=== PATIENT | male | born 1945 | race Caucasian/White ===

== ENCOUNTER → 2017-04-10 | Outpatient (CLI) | payer OTHER, MEDICARE ==
[~2017-04-10] MED LIST: ASCOGRA; ASPI-113 PO; CLB/200 PO; ERGO1CAP35 PO; LISI-788 PO; OMEG10007 PO; OXYC-292 PO; SIMV20TA2 PO
--- NOTE | 2017-04-10 09:53 | DIAGNOSTIC IMAGING REPORT ---
LEFT KNEE 1 OR 2 VIEWS ROUTINE HISTORY:71 yearsMale acute left knee pain without reported trauma. COMPARISON: None available. TECHNIQUE: Frontal and lateral views of the left knee. FINDINGS: The patient is status post left knee arthroplasty with patellar resurfacing. There is a moderate-sized knee joint effusion. Vascular calcifications are noted. No acute fracture or dislocation. No intra-articular loose body. No evidence of hardware fracture or loosening. IMPRESSION: 1. Moderate sized joint effusion without acute fracture or dislocation. 2. Left knee arthroplasty with patellar resurfacing. No evidence of hardware fracture or complication. The above report was generated using voice recognition software. It may contain grammatical, syntax or spelling errors. Electronically signed by: Tonio Rai 04/10/2017 9:52 AM Dictated Date/Time: 04/10/2017 9:49 AM
== END | disposition home or self-care (01) ==
LOC: C.LAB1850 09:35
PROVIDERS: ATTEND Family Medicine
DX: M25.569 Pain in unspecified knee (principal)

== ENCOUNTER 2017-08-23 06:10 | Emergency (ER) | payer OTHER, MEDICARE ==
[~2017-08-23] VITALS: Ht 175.3 cm; Wt 86.6 kg
[2017-08-23 06:17] VITALS: TEMP 36.5; Ht 175.3 cm; Wt 86.6 kg
[2017-08-23] MEDS ORDERED: LISI40TA PO (06:39)
[2017-08-23] MEDS ORDERED: HYG/25 PO (06:39)
--- NOTE | 2017-08-23 07:11 | EMERGENCY ROOM VISIT NOTE ---
History Report prepared by Tyler: Franck Kaur Under the Supervision of: Dr. Malika Infante D.O. First contact with patient: 06:26 Chief Complaint: WOUND INFECTION Stated Complaint: INFECTED FINGER History of Present Illness The patient is a 72 year old male who presents to the Emergency Room with complaints of a waxing and waning left index finger pain, redness, and swelling that started about 7 or 8 weeks ago. He says that about 8 weeks ago, he got out of the shower and noticed a pimple on his left armpit. The patient states that it then got bigger, so he saw his family doctor and was told that he had an inflamed boil, and was put on Keflex. The patient notes that he then came back a week later, and had it lanced, but the boil got bigger. He was then changed to Doxycycline. He says that he then saw Dr. Kaba of [facility], and the primer waterproofing machine adjuster lanced the boil, and told the patient that only blood came out , without any oozing. The patient says that the boil went down in size, and completely disappeared before the Doxycycline ran out. He says that he then thought that a bug bit him on the left index finger a few days ago, and then it really started to become painful. He saw Dr. Kaba again, and was told to finish the left-over Doxycycline, but the boil became even larger. The patient states that he went to the [facility] yesterday, and was put on Bactrim and given a shot in the butt. The patient adds that he has had a bit of left arm pain recently, but he may have laid on it wrong. He denies any fevers, chills, nausea, vomiting, or abdominal pain. He notes that he is not diabetic, and has not been on chemotherapy. He is not on any drugs that would affect his immune system. He notes no history of MRSA. Source of History: patient Onset: 7 or 8 weeks ago Position: finger(s) (left index) Symptom Intensity: without oozing Quality: other (redness, pain, swelling) Timing: waxes/wanes Associated Symptoms: No fevers, No chills, No nausea, No vomiting, No abdominal pain Note: Associated symptoms: Some left arm pain recently. Review of Systems See HPI for pertinent positives & negatives. A total of 8 systems reviewed and were otherwise negative. Past Medical & Surgical Medical Problems: (1) Carpal tunnel syndrome (2) Localized, primary osteoarthritis of the lower leg (3) Lumbar spinal fusion (4) Repair of retina for retinal detachment (5) Replacement of total knee joint (6) Retinal tear Family History Family history omitted secondary to patient's advanced age. Social History Smoking Status: Never Smoker Marital Status: Housing Status: lives with family Current/Historical Medications Scheduled Cephalexin Monohydrate (Keflex), 500 MG PO QID Chlorthalidone (Hygroton), 25 MG PO DAILY Lisinopril (Zestril), 40 MG PO DAILY Simvastatin (Zocor), 20 MG PO QPM Allergies Coded Allergies: Quetiapine (Verified Allergy, Mild, DYSTONIC REACTION, 08/23/17) Alprazolam (Verified Allergy, Unknown, ., 08/23/17) Common Ragweed (Verified Allergy, Unknown, _, 08/23/17) Iodinated Contrast Media (Verified Allergy, Unknown, _, 08/23/17) Penicillins (Verified Allergy, Unknown, HIVES, 08/23/17) Quinolones (Verified Adverse Reaction, Intermediate, EXTREME ANXIETY, ) Corticosteroids (Verified Adverse Reaction, Unknown, too reeved up, ) Mirtazapine (Verified Adverse Reaction, Unknown, DYSTONIC REACTION., 08/23) Prednisone (Verified Adverse Reaction, Unknown, "I GET WIRED.", 08/23/17) Uncoded Allergies: all benzoprines (Adverse Reaction, Unknown, i refuse, 05/11/14) all psychiatric medication (Adverse Reaction, Unknown, I refuse, 05/11/14) Physical Exam Vital Signs Date Time Temp Pulse Resp B/P (MAP) Pulse Ox O2 Delivery O2 Flow Rate FiO2 08/23/17 08:51 70 18 136/72 97 08/23/17 08:10 66 18 134/77 96 Room Air 08/23/17 06:17 36.5 93 18 187/80 96 Room Air Physical Exam GENERAL: alert, well appearing, well nourished, no distress, non-toxic LUNGS: Clear to auscultation. Normal chest wall mechanics HEART: no murmurs, S1 normal and S2 normal ABDOMEN: abdomen soft, non-tender, normo-active bowel sounds, no masses, no rebound or guarding. SKIN: no rashes and no bruising UPPER EXTREMITIES: Just distal to the first MCP, patient with area of edema and erythema measuring approximately 2 cm. Central area of fluctuance, no active bleeding or drainage. Mild surrounding erythema noted. No pain with flexion or extension, no pain along flexor surface of finger, no fusiform swelling, no joint effusion, no evidence of ascending cellulitis or lymphangitis. Normal pulses, normal cap refill, normal sensory. LOWER EXTREMITIES: No pitting edema. NEURO EXAM: Normal sensorium, cranial nerves II-XII grossly intact, normal speech, no gross weakness of arms, no gross weakness of legs. Nml gait. Medical Decision & Procedures Laboratory Results 08/23/17 07:19 Red Blood Count 4.38, Mean Corpuscular Volume 97.0, Mean Corpuscular Hemoglobin 32.0, Mean Corpuscular Hemoglobin Concent 32.9, Mean Platelet Volume 10.2, Neutrophils (%) (Auto) 83.0, Lymphocytes (%) (Auto) 8.2, Monocytes (%) (Auto) 7.0, Eosinophils (%) (Auto) 1.3, Basophils (%) (Auto) 0.3, Neutrophils # (Auto) 9.10, Lymphocytes # (Auto) 0.90, Monocytes # (Auto) 0.77, Eosinophils # (Auto) 0.14, Basophils # (Auto) 0.03 08/23/17 07:19 Test 08/23/17 07:19 White Blood Count 10.96 K/uL (4.8-10.8) Red Blood Count 4.38 M/uL (4.7-6.1) Hemoglobin 14.0 g/dL (14.0-18.0) Hematocrit 42.5 % (42-52) Mean Corpuscular Volume 97.0 fL (80-100) Mean Corpuscular Hemoglobin 32.0 pg (25-34) Mean Corpuscular Hemoglobin Concent 32.9 g/dl (32-36) Platelet Count 261 K/uL (130-400) Mean Platelet Volume 10.2 fL (7.4-10.4) Neutrophils (%) (Auto) 83.0 % Lymphocytes (%) (Auto) 8.2 % Monocytes (%) (Auto) 7.0 % Eosinophils (%) (Auto) 1.3 % Basophils (%) (Auto) 0.3 % Neutrophils # (Auto) 9.10 K/uL (1.4-6.5) Lymphocytes # (Auto) 0.90 K/uL (1.2-3.4) Monocytes # (Auto) 0.77 K/uL (0.11-0.59) Eosinophils # (Auto) 0.14 K/uL (0-0.5) Basophils # (Auto) 0.03 K/uL (0-0.2) RDW Standard Deviation 45.9 fL (36.4-46.3) RDW Coefficient of Variation 12.9 % (11.5-14.5) Immature Granulocyte % (Auto) 0.2 % Immature Granulocyte # (Auto) 0.02 K/uL (0.00-0.02) Anion Gap 8.0 mmol/L (3-11) Est Creatinine Clear Calc Drug Dose 89.0 ml/min Estimated GFR () 102.6 Estimated GFR (Non- 88.5 BUN/Creatinine Ratio 30.1 (10-20) Calcium Level 9.8 mg/dl (8.5-10.1) Date/Time Source Procedure Growth Status 08/23/17 00:00 Abscess 1st Gram Stain - Final Complete 08/23/17 00:00 Wound Culture - Final Staphylococcus Aureus Complete Laboratory results per my review. Medications Administered Medications (Trade) Dose Ordered Sig/Crystal Route Start Time Stop Time Status Last Admin Dose Admin Lidocaine HCl (Buffered Lidocaine 1% Inj) 20 ml STK-MED ONCE INFIL 08/23/17 07:15 08/23/17 07:16 DC 08/23/17 07:23 20 ML Cephalexin Monohydrate (Keflex Cap) 500 mg NOW ONCE PO 08/23/17 08:30 08/23/17 08:31 DC 08/23/17 08:21 500 MG Procedure Incision & Drainage Indication: Abscess. Location: Left index finger. Verbal consent was obtained after the risks and benefits were explained, including but not limited to bleeding, scarring, infection, pain, and bone/joint /nerve damage. At this time, the risks of the procedure are less than the risks of NOT performing the procedure. A time out was taken and the correct patient and site identified. The skin was prepped with betadine and a sterile field set. The wound was anesthetized with 2.5 ml of 1% lidocaine without epinephrine. The abscess cavity was entered with a number 11 blade and purulent material expressed. Copious irrigation was performed using normal saline. The wound was explored for foreign bodies and none found. Debridement was not performed. Packing placed and a sterile dressing applied. Detailed wound care instructions and signs and symptoms of worsening infection reviewed with the patient. No complications and the patient tolerated the procedure well. After the area was punctured, forceps were used to break up any loculations. ED Course 0653: The patient was evaluated in room B3B. A complete history and physical exam was performed. 0718: I performed a bedside ultrasound on the patient's finger - there was focal collection of debris noted. 0827: Upon reevaluation, the patient is feeling better. I discussed the findings and the treatment plan with the patient. He verbalizes agreement and understanding. He was discharged home. 0830: Ordered Keflex Cap 500 mg PO. Medical Decision Differential diagnosis includes etiologies such as cellulitis, abscess, MRSA infection, DVT, necrotizing fasciitis, dermatitis, drug eruption, as well as others were entertained. No evidence of deep space infection, ascending lymphangitis, septic joint, tenosynovitis. Purulent material expressed and cultured during I&D. Keflex added and pt instructed to continue bactrim. No hx of MRSA or wound infections. Unclear if related to axillary infection a few weeks ago. Discussed with pt follow-up, sx to watch/return for, he verbalized understanding and was agreeable with plan. Pt well appearing at [place], no fever, ambulating with a steady gait. Medication Reconcilliation Current Medication List: was personally reviewed by me Blood Pressure Screening Patient's blood pressure: Elevated blood pressure Blood pressure disposition: Elevated BP felt to be situational Impression Primary Impression: Abscess Additional Impression: Cellulitis Scribe Attestation The scribe's documentation has been prepared under my direction and personally reviewed by me in its entirety. I confirm that the note above accurately reflects all work, treatment, procedures, and medical decision making performed by me. Departure Information Dispostion Home / Self-Care Prescriptions Cephalexin Monohydrate (Keflex) 500 Mg Cap 500 MG PO QID, #28 CAP Prov: Malika Infante, 08/23/17 Referrals Houston, Nasir H.,M.D. (PCP) Patient Instructions My [facility] Additional Instructions Please keep your appointment to have Dr. Houston recheck the wound tomorrow. If you have worsening pain, increased swelling, increased redness or red streaks coming up the arm, develop fevers, nausea or vomiting, dizziness, chills, or you have any other new concerns, please return the emergency room. Please continue taking the Bactrim as prescribed and take the Keflex in addition. While taking antibiotics you may want to consider using [id number] probiotics to help prevent GI side effects. Please drink plenty of water. Problem Qualifiers Additional Impression: Cellulitis Site of cellulitis: extremity Site of cellulitis of extremity: finger Laterality: left Qualified Codes: L03.012 - Cellulitis of left finger
[2017-08-23] MEDS ORDERED: XYLOCAINE 1%/SOD BICARB 20 ML VIAL INFIL ONE (07:15)
[2017-08-23 07:35] LABS: BASO % 0.3 %; BASO ABS # 0.03 K/uL (0-0.2); COMPLETE YES; EOS % 1.3 %; HEMATOCRIT 42.5 % (42-52); IG% 0.2 %; LYMPH % 8.2 %; MEAN CORPUSCULAR HGB CONC 32.9 g/dl (32-36); MEAN PLATELET VOLUME 10.2 fL (7.4-10.4); PLATELET COUNT 261 K/uL (130-400); RED BLOOD COUNT 4.38 M/uL (4.7-6.1); WHITE BLOOD COUNT 10.96 K/uL (4.8-10.8)
[2017-08-23 07:51] LABS: BUN/CREATININE RATIO 30.1 (10-20); CALCIUM 9.8 mg/dl (8.5-10.1); CREATININE 0.83 mg/dl (0.60-1.40); POTASSIUM 4.4 mmol/L (3.5-5.1)
[2017-08-23] MEDS ORDERED: CEPHALEXIN MONOHYDRATE 250 MG CAP PO ONE (08:30)
[2017-08-23] MEDS ORDERED: CEPH500C PO (08:42)
[2017-08-23 08:51] VITALS: BP 136/72; PULSE 70; O2SAT 97
--- NOTE | 2017-08-25 11:41 | Pharmacy Progress Note ---
ED Pharmacist Culture FollowUp Date of Service: Aug 25, 2017. Patient's L index finger abscess cx is growing MRSA. I+D performed in the ER, he was instructed to continue the take Bactrim DS which was prescribed by Urgent Care the previous day and a new Rx for Keflex 500mg PO QID x 7 days was given. The organism is sensitive to Bactrim, therefore he is receiving adequate ABX therapy. No further action required.
== END 2017-08-23 08:52 | disposition home or self-care (01) ==
LOC: C.EDB 06:11
DX: L02.512 Cutaneous abscess of left hand (principal); L03.012 Cellulitis of left finger; Z98.1 Arthrodesis status; Z96.659 Presence of unspecified artificial knee joint

== ENCOUNTER 2017-09-27 17:04 | Emergency (ER) | payer OTHER, MEDICARE ==
[~2017-09-27] VITALS: Ht 175.3 cm; Wt 85.2 kg
[~2017-09-27 17:04] MED LIST changes: -ASCOGRA; -ASPI-113 PO; +CEPH500C PO; -CLB/200 PO; -ERGO1CAP35 PO; +HYG/25 PO; -LISI-788 PO; +LISI40TA PO; -OMEG10007 PO; -OXYC-292 PO
[2017-09-27 17:07] VITALS: BP 157/85; PULSE 82; TEMP 36.4; O2SAT 96; Ht 175.3 cm; Wt 85.2 kg
[2017-09-27] MEDS ORDERED: XYLOCAINE 1%/SOD BICARB 20 ML VIAL INFIL STA (17:18)
[2017-09-27] MEDS ORDERED: IBUP-1050 PO (17:29)
--- NOTE | 2017-09-27 18:01 | EMERGENCY ROOM VISIT NOTE ---
ED Visit Note First contact with patient: 17:14 Chief Complaint: "Cut finger". History of Present Illness: This patient is a 72-year-old male who presents to the Emergency Department via private vehicle accompanied by female for evaluation of their left thumb laceration. Patient sustained the laceration while using a knife earlier today around 4:30 PM. They report a moderate amount of bleeding initially. They deny any numbness or tingling into the distal extremity. They report no decreased range of motion of the affected digit. Patient rates his current discomfort as a 2/10. Patient's Tetanus status is believed to be currently up-to-date. Medications: As noted below and the medication list was reviewed. Allergies: As noted below PMH: No pertinent SHx: Patient lives locally. ROS: All pertinent positive and negative review of systems are appropriately documented in the History of Present Illness. Physical Exam: VITAL SIGNS - Vital signs and nursing notes were reviewed. Stable and hypertensive. GENERAL -72-year-old male appearing his stated age who is in no acute distress. Communicates well with provider and answers questions appropriately. SKIN - There is a 1 cm long laceration noted medial aspect of the left distal thumb. The edges gape apart with traction. No foreign bodies appreciated. Upon further examination there are no deep structures including vessel, tendon, or bony structures appreciated. There is no active bleeding noted. MUSCULOSKELETAL - Laceration as described above. +5/5 strength appreciated of the affected digit. Full range of motion of the affected digit. NEUROLOGIC - Spinothalamic tract was found to be intact with ability to discriminate sharp versus dull sensation. No sensory defects of the dorsal column were appreciated utilizing light touch for evaluation. VASCULAR - Capillary refill was brisk. ED Course: Patient was seen and evaluated by myself. Risks and benefits of performing primary wound closure versus no repair were discussed with the patient who verbalizes understanding. Verbal consent was obtained prior to performing the procedure. 4 cc of 1% buffered lidocaine was used to perform a digital block of the left first digit. The wound was cleansed and prepped in the typical sterile fashion utilizing normal saline and Betadine. The wound was sterilely draped. Once proper anesthetization was established, the wound was further examined and demonstrated no deep involvement. The wound was copiously irrigated with normal saline and Betadine. The wound was closed using 2 simple, 5-0 nylon sutures with the wound edges being well approximated. Patient tolerated the procedure well. No complications were met. The wound was cleansed and dressed with a Bacitracin dressing. Medication list was reviewed. He was found to be hypertensive I believe secondary to situation. Patient educated on worrisome symptoms for return visit to the Emergency Department. Patient discharged to home in good condition. Problem List Medical Problems: (1) Carpal tunnel syndrome Status: Resolved (2) Localized, primary osteoarthritis of the lower leg Status: Chronic (3) Lumbar spinal fusion Status: Resolved (4) Repair of retina for retinal detachment Status: Resolved (5) Replacement of total knee joint Permanent Comment: left TKA Dr. Fernandez Status: Resolved (6) Retinal tear Status: Resolved Current/Historical Medications Scheduled Chlorthalidone (Hygroton), 25 MG PO DAILY Ibuprofen (Advil), 600 MG PO Q6H Lisinopril (Zestril), 40 MG PO DAILY Simvastatin (Zocor), 20 MG PO QPM Allergies Coded Allergies: Quetiapine (Verified Allergy, Mild, DYSTONIC REACTION, 09/27/17) Alprazolam (Verified Allergy, Unknown, ., 09/27/17) Common Ragweed (Verified Allergy, Unknown, _, 09/27/17) Iodinated Contrast Media (Verified Allergy, Unknown, _, 09/27/17) Penicillins (Verified Allergy, Unknown, HIVES, 09/27/17) Quinolones (Verified Adverse Reaction, Intermediate, EXTREME ANXIETY, ) Corticosteroids (Verified Adverse Reaction, Unknown, too reeved up, ) Mirtazapine (Verified Adverse Reaction, Unknown, DYSTONIC REACTION., 09/27) Prednisone (Verified Adverse Reaction, Unknown, "I GET WIRED.", 09/27/17) Uncoded Allergies: all benzoprines (Adverse Reaction, Unknown, i refuse, 05/11/14) all psychiatric medication (Adverse Reaction, Unknown, I refuse, 05/11/14) Vital Signs Date Time Temp Pulse Resp B/P (MAP) Pulse Ox O2 Delivery O2 Flow Rate FiO2 09/27/17 17:07 36.4 82 20 157/85 96 Room Air Medications Administered Medications (Trade) Dose Ordered Sig/Crystal Route Start Time Stop Time Status Last Admin Dose Admin Lidocaine HCl (Buffered Lidocaine 1% Inj) 20 ml ONE STAT INFIL 09/27/17 17:18 09/27/17 17:19 DC 09/27/17 17:37 20 ML Departure Information Impression Primary Impression: Finger laceration Dispostion Home / Self-Care Condition GOOD Referrals Nasir Houston M.D. (PCP) Patient Instructions My [facility] Additional Instructions Discharge Instructions: You have received 2 sutures on your thumb. These sutures are NOT dissolvable and WILL need to be removed by a health care provider in 12-14 days. You can return to the Emergency Department or contact your Primary Care Provider to have the sutures removed. Proper wound care is essential for adequate wound healing and infection prevention. You can shower and clean the wound with soap and water. Do not scour over the wound, pat dry with a towel. Do not submerse the wound (i.e. bathe or dish wash) until the sutures have been removed. You can use an antibiotic ointment with a dressing over the wound for the next 3-4 days. After this time you may leave the wound dry and open to the air. If crust develops over the wound you can use a Q-tip to apply a 1:1 peroxide:water solution to clean the wound. Look for signs of infection of the wound including: increased pain, swelling, foul discharge, streaking, or increased temperature. If any of these are noticed you should return to the Emergency Department for further assessment and treatment. As with any laceration you may have received nerve damage to the surrounding tissues. This damage may or may not be permanent. Return to the emergency department if your symptoms worsen despite treatment course outlined above. Thank you for your time and have a great holiday!
--- NOTE | 2017-09-27 18:16 | EMERGENCY ROOM VISIT NOTE ---
ED Visit Note First contact with patient: 17:14 I have personally seen and evaluated the patient with the physician assistant branch operations manager. I agree with the diagnostic/management decisions and have personally been involved in these decisions and agree with the diagnosis.
== END 2017-09-27 18:07 | disposition home or self-care (01) ==
LOC: C.EDB 17:05 → C.EDD 18:07
DX: S61.012A Laceration without foreign body of left thumb without damage to nail, initial encounter (principal); W26.0XXA Contact with knife, initial encounter; Z96.659 Presence of unspecified artificial knee joint; M19.90 Unspecified osteoarthritis, unspecified site

== ENCOUNTER → 2017-10-26 | Outpatient (CLI) | payer OTHER, MEDICARE ==
[~2017-10-26] MED LIST changes: -CEPH500C PO; +IBUP-1050 PO
[2017-10-26 18:00] LABS: BLOOD UREA NITROGEN 27 mg/dl (7-18); CREATININE 1.18 mg/dl (0.60-1.40)
== END | disposition home or self-care (01) ==
LOC: C.LABBFT 14:12
DX: Z00.00 Encounter for general adult medical examination without abnormal findings (principal)

== ENCOUNTER → 2017-10-27 | Outpatient (CLI) | payer OTHER, MEDICARE ==
[~2017-10-27] MED LIST changes: +OPTIRAY 320 IV PRN
--- NOTE | 2017-10-27 12:30 | DIAGNOSTIC IMAGING REPORT ---
SINUSES-MAXILLOFACIAL COMBO HISTORY: R22.0 Nasal cavity mass PLEASE PERFORM FUSION CT SCAN OF THE SINU TECHNIQUE: Multiaxial CT images of the sinuses were performed both before and after intravenous administration of contrast. Fusion CT sinus protocol was also obtained. COMPARISON STUDY: None. FINDINGS: There is an approximately 3.1 x 2.2 x 0.8 cm lobular mass located within and occupying the majority of the right nostril. This mass abuts and likely invades into the cartilaginous portion of the anterior nasal septum at the level of the right nostril. No associated bony destruction as this mass is located primarily within the right nostril. The mass appears to cross the midline at the inferior border near the opening of the left nostril. Mild mucosal thickening within the floor of the right maxillary sinus. Mild S shaped deviation of the nasal septum. The bilateral ostiomeatal units are patent. The orbits and visualized brain parenchyma are unremarkable. No significant upper cervical lymphadenopathy. No suspicious lytic or blastic osseous lesions. IMPRESSION: An approximately 3.1 x 2.2 x 0.8 cm lobulated mass located within and occupying the majority of the right nostril as described above. Electronically signed by: Koko Diane M.D. 10/27/2017 12:29 PM Dictated Date/Time: 10/27/2017 12:19 PM
== END | disposition home or self-care (01) ==
LOC: C.CTS 10:46
DX: Z00.00 Encounter for general adult medical examination without abnormal findings (principal); R22.0 Localized swelling, mass and lump, head

== ENCOUNTER → 2017-11-02 | Day surgery (SDC) | payer OTHER, MEDICARE ==
[2017-10-28 12:07] LABS: BASO % 0.7 %; BASO ABS # 0.08 K/uL (0-0.2); EOS % 7.5 %; EOS ABS # 0.88 K/uL (0-0.5); HEMATOCRIT 41.2 % (42-52); HEMOGLOBIN 13.9 g/dL (14.0-18.0); IG# 0.03 K/uL (0.00-0.02); LYMPH % 13.8 %; LYMPH ABS # 1.62 K/uL (1.2-3.4); MEAN CELL VOLUME 96.3 fL (80-100); MEAN CORPUSCULAR HEMOGLOBIN 32.5 pg (25-34); MEAN CORPUSCULAR HGB CONC 33.7 g/dl (32-36); MEAN PLATELET VOLUME 10.4 fL (7.4-10.4); MONO % 9.7 %; MONO ABS # 1.14 K/uL (0.11-0.59); NEUT ABS # 7.99 K/uL (1.4-6.5); PLATELET COUNT 266 K/uL (130-400); RED CELL DISTRIBUTION WIDTH CV 13.5 % (11.5-14.5); WHITE BLOOD COUNT 11.74 K/uL (4.8-10.8)
[2017-10-28 12:17] LABS: PTT PATIENT 26.4 SECONDS (21.0-31.0)
[2017-10-28 12:32] LABS: POTASSIUM 4.2 mmol/L (3.5-5.1)
[2017-10-29 12:37] VITALS: Ht 175.3 cm; Wt 82.7 kg
[~2017-11-02] VITALS: Ht 175.3 cm; Wt 82.7 kg
[~2017-11-02] MED LIST changes: +ASPCH81X PO; +ATOR-22 PO; +ATROPINE SULFATE 0.1 MG/ML 5ML SYR IV PRN; +BACITRACIN OINT 15 GM TUBE ONE; +CLINDAMYCIN 600 MG/54 ML D5W IV SCH; +CLINDAMYCIN 600MG IV SCH; +COEN1CAP7 PO; +DEXAMETHASONE SOD INJ 4 MG/ML VIAL ONE; +EpHEDrine SULFATE INJ 50 MG/ML AMP IV PRN; +EpHEDrine SULFATE INJ 50 MG/ML AMP ONE; +EpINEphrine INJ 1MG/ML AMP 1 MG/ML AMP ONE; +FENTANYL CITRATE INJ 50 MCG/1 ML 2 ML VIAL IV PRN; +FENTANYL CITRATE INJ 50 MCG/1 ML 2 ML VIAL ONE; +GLYCOPYRROLATE INJ 0.2 MG/ML VIAL ONE; +HYDROmorphone INJ 1 MG/ML SYR IV PRN; -IBUP-1050 PO; +LACTATED RINGER'S 1000ML 1,000 ML IV SCH; +LIDOCAINE 4% MPF SOAK 5 ML = 1 DOSE TOP ONE; +LIDOCAINE HCL 2% 2 ML VIAL (20MG/ML) ONE; +LIDOCAINE/EPINEPHRINE 1% 20 ML VIAL ONE; +MULT1TAB30 PO; +NEOSTIGMINE METHYLSULFATE 5 MG/5 ML SYR ONE; +OMEG10007 PO; +ONDANSETRON INJ 2 MG/ML 2 ML VIAL IV PRN; +ONDANSETRON INJ 2 MG/ML 2 ML VIAL ONE; -OPTIRAY 320 IV PRN; +OXYCODONE/ACETAMINOPHEN 5-325 TAB PO PRN; +OXYMETAZOLINE HCL 0.05% NA SPR 15 ML BTL PRN; +PHENYLEPHRINE HCL INJ 10 MG/ML VIAL ONE; +PROPOFOL IV EMULSION 10 MG/ML 20 ML VIAL IV ONE; +PSYL48.59 PO; +SILD100T PO; +SILD1TAB39 PO; -SIMV20TA2 PO; +SUCCINYLCHOLINE CHLORIDE 20 MG/ML 10 ML VIAL IV ONE; +TRIA1SPR4; +ZANTAC PO
--- NOTE | 2017-11-02 07:26 | History & Physical Bridge - SC ---
H&P Re-Evaluation Bridge Note: I have examined the patient, reviewed the History & Physical and in the interval since the performance of the History & Physical I have noted the following changes of clinical significance: No changes noted
--- NOTE | 2017-11-02 10:16 | [facility] Operative Report ---
Operative Report Operative Date Nov 02, 2017. Pre-Operative Diagnosis Right Nasal Mass Post-Operative Diagnosis Same Procedure(s) Performed Right Nasal Mass Excisional Biopsy Surgeon Dr. Cowan Molasses And Caramel Operator Surgeon(s) None Estimated Blood Loss 5 ml Findings 1. 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 FROZEN SECTION MARGINS ALL NEGATIVE FOR CARCINOMA Specimens A.) Right Septal Lesion FROZEN & PERMANENT (Papiloma vs. Inverted Papiloma vs. Malignant) Double Silk= Anterior Surface, Single Silk= Septal Surface, Double Prolene= Superior, Single Prolene= Superior B.) Left Septal Mucosa FROZEN C.) Nasal Floor Mucosal Margin FROZEN D.) Superior Septal Mucosal Margin FROZEN E.) Columellar Skin Margin FROZEN F.) Lateral Septal Mucosal Margin FROZEN G.) Caudal Septal Cartilage PERMANENT I attest to the content of the Intraoperative Record and any orders documented therein. Any exceptions are noted below.
--- NOTE | 2017-11-02 10:19 | Discharge Instructions ---
Discharge Instructions Date of Service Nov 02, 2017. Admission Reason for Admission: Nasal Cavity Mass,Z01.818 Discharge Discharge Diagnosis / Problem: SAME Discharge Goals Goal(s): Therapeutic intervention Activity Recommendations Activity Limitations: as noted below LIGHT ACTIVITY FOR 1 WEEK; NO LIFTING > OR = 15LBS FOR 1 WEEK; NO NOSE BLOWING FOR 1 WEEK . Current Hospital Diet Patient's current hospital diet: Discharge Diet Recommended Diet: Regular Diet Procedures Procedures Performed: Right Nasal Mass Excisional Biopsy Pending Studies Studies pending at discharge: no Medical Emergencies . Who to Call and When: Medical Emergencies: If at any time you feel your situation is an emergency, please call 911 immediately. . Non-Emergent Contact Non-Emergency issues call your: Surgeon . . "Provider Documentation" section prepared by Castillo Cowan. . VTE Core Measure Inpt VTE Proph given/why not?: SCD's
--- NOTE | 2017-11-02 11:09 | OPERATIVE REPORT ---
DATE OF OPERATION: 11/02/2017 PREOPERATIVE DIAGNOSIS: Right nasal mass. 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 PROCEDURE: Excisional biopsy of right nasal septal mass. SURGEON: Dr. Castillo Cowan. ANESTHESIA: General endotracheal. ESTIMATED BLOOD LOSS: 5 mL FINDINGS: 1. Large approximately 3 cm papillomatous appearing lesion emanating from the patient's nasal septum with free margins circumferentially around the mass except at the septal attachment. 2. Papillary squamous cell carcinoma on frozen section diagnosis of the main specimen. 3. Negative margins on frozen sections from the superior septal margin, inferior nasal floor margin, lateral septal mucosal margin, medial columellar skin margin, and left septal margin. SPECIMENS: 1. Right nasal mass for frozen and permanent pathologic assessment. 2. Superior septal mucosal margin, inferior nasal floor mucosal margin, lateral septal mucosal margin, medial columellar skin margin, and left septal mucosal margin, all for frozen pathological assessment. 3. Caudal septal cartilage margin for permanent pathological assessment. COMPLICATIONS: None. INDICATIONS FOR THE PROCEDURE: The patient is a 72-year-old male with at least a 6-month history of a progressively enlarging right nasal mass that does not have any pain, but does have bleeding with his instrumentation of the lesion. The patient was uncertain as to whether or not he has had this mass for 6 months or closer to 10 years as he has been told in the past he had a nasal polyp on the right hand side. The patient has a prior smoking history. A CT scan was obtained that revealed a 3.1 x 2.2 x 0.8 cm lobular mass located within and occupying the majority of the right nostril with the mass abutting and perhaps invading the cartilaginous portion of the anterior nasal septum and possible extension to the left hand side, although clinically this was not evident. Options for the patient including in-office biopsy versus excisional biopsy versus referral to a tertiary care center were discussed and he opted for excisional biopsy. He presents for the above-mentioned procedure on an outpatient elective basis. DESCRIPTION OF PROCEDURE: After informed consent had been obtained from the patient, the patient was wheeled to the operating room and placed on the operating room table in the supine position. Monitors were placed. After induction of general endotracheal anesthesia, the patient was prepped in the usual fashion for nasal surgery. The patient's right nasal cavity was almost completely filled by a papillomatous lesion that appeared to emanate from the nasal septum as there was air between the lesion and the sides of the nostril circumferentially around the mass except for the septal portion. The nasal septal mucosa as well as the columellar skin was injected with 4.5 mL of 1% lidocaine with 1:100,000 epinephrine. After allowing adequate time for vasoconstriction and decongestion, a #15 scalpel was used to make an incision at the junction of the columellar skin and septal mucosa in a broad base given the large nature of this papillomatous lesion. Dissection was carried down to the level of the septal cartilage and a mucoperiosteal flap was elevated using a caudal elevator. Dissection was carried from anterior to posterior. Once the mucoperichondrial flap was elevated to the posterior extent of the mass and within the nasal cavity, a #15 scalpel was used to make a posterior/lateral septal mucosal cut with care to ensure complete removal of the papillomatous lesion. This allowed delivery of the specimen out of the nasal cavity and the lesion measured approximately 3 cm in greatest dimension. This was sent off for frozen pathological assessment. Unfortunately, this revealed papillary squamous cell carcinoma. Therefore, margins were taken from the superior septal mucosa, inferior nasal floor mucosa, medial columellar skin, and lateral septal mucosa, which was essentially deeper within the nasal cavity as well as the left septal mucosa, in case there was extension into the left nasal cavity. All these margins fortunately came back negative for carcinoma. In addition, due to the potential cartilaginous involvement, a rectangular strip of caudal septum was resected measuring approximately 1 cm in length x 2 mm in width and this was sent off for a permanent pathological assessment. Grossly, all the margins appeared negative. There was a defect in the septal mucosa given the elevation of the flap. The remaining septal mucosa was attached to the remaining columellar skin after receiving the good news on the intraoperative frozen sections. There was perhaps a small amount of exposed septal cartilage posteriorly that measured approximately 1 cm in greatest dimension, which will be allowed to heal by secondary intention. The columellar skin was attached to the remaining septal mucosa using several simple interrupted 4-0 chromic sutures. A 4-0 plain gut suture on a Zohaib needle was then used to perform a quilting stitch of the mucoperichondrial flaps bilaterally to help prevent septal hematoma. Lidocaine and epinephrine pledgets were placed in the bilateral nasal cavities and pressure applied. An orogastric tube was placed and the stomach was suctioned free of air and stomach contents. The lidocaine and epinephrine pledgets were then removed from the patient's nasal cavity. This marked the end of the case. The patient tolerated the procedure well. There were no apparent complications. The patient was extubated and transferred to the recovery room in the stable condition. I attest to the content of the Intraoperative Record and any orders documented therein. Any exception s are noted below.
[2017-11-02 11:31] VITALS: BP 118/71; PULSE 93; O2SAT 97
--- NOTE | 2017-11-02 11:41 | Anesthesia Progress Nt - [facility] ---
Anesthesia Post Op Note Date & Time Nov 02, 2017 at 11:41 Vital Signs Pain Intensity: 0 Vital Signs Past 12 Hours Date Time Temp Pulse Resp B/P (MAP) Pulse Ox O2 Delivery O2 Flow Rate FiO2 11/02/17 11:31 93 16 118/71 (87) 97 Room Air 11/02/17 10:51 36.5 94 16 126/72 (90) 96 Room Air 11/02/17 10:47 101 19 96 11/02/17 10:47 104 19 11/02/17 10:46 101 16 11/02/17 10:46 37.2 95 Room Air 11/02/17 10:46 101 16 95 11/02/17 10:45 128/70 11/02/17 10:41 101 16 11/02/17 10:41 101 16 94 11/02/17 10:40 130/79 11/02/17 10:37 102 13 94 11/02/17 10:37 103 13 11/02/17 10:36 108/74 11/02/17 10:32 101 18 11/02/17 10:32 101 18 94 11/02/17 10:30 146/67 11/02/17 10:27 94 21 98 11/02/17 10:27 95 21 11/02/17 10:25 126/71 11/02/17 10:22 36.6 92 16 128/75 96 Room Air 11/02/17 10:22 92 11/02/17 10:22 92 125/75 96 11/02/17 06:59 36.4 81 16 132/79 (96) 96 Room Air Notes Mental Status: alert / awake / arousable, participated in evaluation Pt Amnestic to Procedure: Yes Nausea / Vomiting: adequately controlled Pain: adequately controlled Airway Patency, RR, SpO2: stable & adequate BP & HR: stable & adequate Hydration State: stable & adequate Anesthetic Complications: no major complications apparent
== END | disposition home or self-care (01) ==
LOC: X.SURG 06:39
DX: C30.0 Malignant neoplasm of nasal cavity (principal); I10 Essential (primary) hypertension; K21.9 Gastro-esophageal reflux disease without esophagitis

== ENCOUNTER → 2017-11-11 | Outpatient (CLI) | payer OTHER, MEDICARE ==
[~2017-11-11] MED LIST changes: -ATROPINE SULFATE 0.1 MG/ML 5ML SYR IV PRN; -BACITRACIN OINT 15 GM TUBE ONE; -CLINDAMYCIN 600 MG/54 ML D5W IV SCH; -CLINDAMYCIN 600MG IV SCH; -DEXAMETHASONE SOD INJ 4 MG/ML VIAL ONE; -EpHEDrine SULFATE INJ 50 MG/ML AMP IV PRN; -EpHEDrine SULFATE INJ 50 MG/ML AMP ONE; -EpINEphrine INJ 1MG/ML AMP 1 MG/ML AMP ONE; -FENTANYL CITRATE INJ 50 MCG/1 ML 2 ML VIAL IV PRN; -FENTANYL CITRATE INJ 50 MCG/1 ML 2 ML VIAL ONE; -GLYCOPYRROLATE INJ 0.2 MG/ML VIAL ONE; -HYDROmorphone INJ 1 MG/ML SYR IV PRN; -LACTATED RINGER'S 1000ML 1,000 ML IV SCH; -LIDOCAINE 4% MPF SOAK 5 ML = 1 DOSE TOP ONE; -LIDOCAINE HCL 2% 2 ML VIAL (20MG/ML) ONE; -LIDOCAINE/EPINEPHRINE 1% 20 ML VIAL ONE; -NEOSTIGMINE METHYLSULFATE 5 MG/5 ML SYR ONE; -ONDANSETRON INJ 2 MG/ML 2 ML VIAL IV PRN; -ONDANSETRON INJ 2 MG/ML 2 ML VIAL ONE; -OXYCODONE/ACETAMINOPHEN 5-325 TAB PO PRN; -OXYMETAZOLINE HCL 0.05% NA SPR 15 ML BTL PRN; -PHENYLEPHRINE HCL INJ 10 MG/ML VIAL ONE; -PROPOFOL IV EMULSION 10 MG/ML 20 ML VIAL IV ONE; -SUCCINYLCHOLINE CHLORIDE 20 MG/ML 10 ML VIAL IV ONE; -TRIA1SPR4
--- NOTE | 2017-11-11 12:11 | DIAGNOSTIC IMAGING REPORT ---
PET/CT SKULL-THIGH CLINICAL HISTORY: 72 years-old Male presenting with C30.0 right nasal septal squamous cell carcinoma. TECHNIQUE: PET/CT was performed from the vertex through the proximal thighs following the intravenous administration of 10.026 mCi of F18-FDG. Blood glucose level 105 mg/dL. The injection was performed at 9:00 AM and imaging began at 9:43 AM and 10:12 AM for the head and neck. Unenhanced CT was performed for attenuation correction purposes and anatomic localization. COMPARISON: CT face from 10/27/2017. CT DOSE (mGy.cm): The estimated cumulative dose is 1564.09. FINDINGS: Head and neck: Mild diffuse FDG avidity at the right nares with significant decrease in nodular soft tissue (max SUV 3.09). No abnormal FDG avidity or photopenia within the brain parenchyma. FDG avid lymphadenopathy in the bilateral supraclavicular fossae (max SUV 2.43 on the right and 3.20 on the left). Chest: Extensive FDG avid lymphadenopathy in the right paratracheal (max SUV 3.97), precarinal (max SUV 4.98), prevascular (max SUV 7.84), and right hilar regions (max SUV 7.40). FDG avid masses in the lungs in the anterior segment of the right upper lobe (max SUV 6.48) and superior segment of the lingula (max SUV 8.61). The right upper lobe mass measures approximately 3.7 cm, and the lingular mass measures approximately 5.7 cm. The lingula mass may abut the left anterior mediastinum without evidence of invasion. Atherosclerosis of the aorta. Coronary artery and mitral annular calcification. Normal heart size. No pericardial or pleural effusion. Emphysema. Abdomen and pelvis: Normal physiologic distribution of radiotracer in the gastrointestinal and genitourinary tracts. No FDG avid lymphadenopathy or mass lesion. Punctate right renal calculus. No hydronephrosis. Allowing for underdistention, circumferential bladder wall thickening likely indicating chronic outlet obstruction secondary to prostatomegaly. Diverticulosis. Normal appendix. No bowel obstruction. Atherosclerosis of the normal caliber abdominal aorta. Musculoskeletal: No FDG-avid or destructive osseous lesion. Degenerative changes of the spine. IMPRESSION: 1. Mild diffuse FDG avidity at the known squamous cell carcinoma at the right nares without discrete mass, consistent with posttreatment change. 2. FDG avid supraclavicular, mediastinal, right hilar lymphadenopathy. 3. FDG avid right upper lobe and lingula masses. The lingula mass appears to be the dominant, larger, more FDG avid mass. These masses and the thoracic lymphadenopathy could represent metastatic spread of the primary nasal mass or a second primary in the lungs with regional metastatic disease. The report will be called/faxed according to standard departmental protocol. Electronically signed by: Guillermo Sharma M.D. 11/11/2017 12:09 PM Dictated Date/Time: 11/11/2017 11:42 AM
== END | disposition home or self-care (01) ==
LOC: C.PET 07:51
DX: C30.0 Malignant neoplasm of nasal cavity (principal)

== ENCOUNTER → 2017-11-16 | Day surgery (SDC) | payer OTHER, MEDICARE ==
[2017-11-13 11:04] VITALS: BMI 28.0
[~2017-11-16] VITALS: Ht 172.7 cm; Wt 84.1 kg
[~2017-11-16] MED LIST changes: +ATROPINE SULFATE 0.1 MG/ML 5ML SYR IV PRN; +CLINDAMYCIN PHOS 150 MG/ML 2 ML VIAL ONE; +DEXAMETHASONE SOD INJ 4 MG/ML VIAL ONE; +EpHEDrine SULFATE INJ 50 MG/ML AMP IV PRN; +EpHEDrine SULFATE INJ 50 MG/ML AMP ONE; +FENTANYL CITRATE INJ 50 MCG/1 ML 2 ML VIAL IV PRN; +FENTANYL CITRATE INJ 50 MCG/1 ML 2 ML VIAL ONE; +GLYCOPYRROLATE INJ 0.2 MG/ML VIAL ONE; +HYDROmorphone INJ 1 MG/ML SYR IV PRN; +LABETALOL HCL IV 5 MG/ML 20ML IV PRN; +LIDOCAINE HCL 2% 2 ML VIAL (20MG/ML) ONE; +MEPERIDINE HCL 25 MG/ML CARP IV PRN; +MIDAZOLAM HCL 1 MG/ML 2ML VIAL ONE; +NEOSTIGMINE METHYLSULFATE 5 MG/5 ML SYR ONE; +ONDANSETRON INJ 2 MG/ML 2 ML VIAL IV PRN; +ONDANSETRON INJ 2 MG/ML 2 ML VIAL ONE; +PHENYLEPHRINE HCL INJ 10 MG/ML VIAL ONE; +PROPOFOL IV EMULSION 10 MG/ML 20 ML VIAL IV ONE; -SILD100T PO; +SUCCINYLCHOLINE CHLORIDE 20 MG/ML 10 ML VIAL IV ONE
[2017-11-16 10:58] VITALS: BP 156/77; PULSE 69; TEMP 36.4; O2SAT 97; Ht 172.7 cm; Wt 84.1 kg
--- NOTE | 2017-11-16 12:25 | Discharge Instructions ---
Discharge Instructions Date of Service Nov 16, 2017. Visit Reason for Visit: Mediastinal Adenopathy, Lung Nodule Discharge Discharge Diagnosis / Problem: Mediastinal Adenopathy, Lung Nodule Discharge Goals Goal(s): Learn about illness Activity Recommendations Activity Limitations: resume your previous activity (in 24 hours) 1. You may coug hup some blood. Call physician if excessive amount noted. Anesthesia . Post Anesthesia Instructions: If you have had General Anesthesia or IV Sedation: * Do not drive today. * Resume driving when surgeon permits. * Do not make important decisions or sign legal documents today. * Call surgeon for: 1. Temperature elevations greater than 101 degrees F. 2. Uncontrollable pain. 3. Excessive bleeding. 4. Persistent nausea and vomiting. 5. Medication intolerance (nausea, vomiting or rash). * For nausea and vomiting use only clear liquids such as: tea, soda, bouillon until nausea subsides, then gradually increase diet as tolerated. * If you have any concerns or questions, call your surgeon's office. If physician is unavailable and it is an emergency, call 911 or go to the nearest emergency room. . Instructions / Follow-Up Instructions / Follow-Up 1. Keep your scheduled appointment with Dr. Contreras on November 23, 2017@ 11: 15. Diet Recommendations Recommended Home Diet: resume previous diet Pending Studies Studies pending at discharge: no Medical Emergencies . Who to Call and When: Medical Emergencies: If at any time you feel your situation is an emergency, please call 911 immediately. . Non-Emergent Contact Non-Emergency issues call your: Surgeon Call Non-Emergent contact if: you have a fever, your pain is not controlled . . "Provider Documentation" section prepared by Hu Perez. .
--- NOTE | 2017-11-16 13:24 | [facility] Post Operative Brief Note ---
Immediate Operative Summary Operative Date Nov 16, 2017. Pre-Operative Diagnosis Large bilateral hypermetabolic lung masses and mediastinal adenopathy Post-Operative Diagnosis Poorly differentiated neoplasm Procedure(s) Performed Endobronchial Ultrasound with Biopsies of levels RII, [place], RX, LX, Level VII and forceps biopsy of BI mass Surgeon Dr Contreras Project Management Specialist Surgeon(s) Miguelito Perez PA-C Estimated Blood Loss 5ML Findings Consistent with Post-Op Diagnosis Specimens All specimens handled by lab and respiratory Anesthesia Type General
--- NOTE | 2017-11-16 14:08 | DIAGNOSTIC IMAGING REPORT ---
CHEST ONE VIEW PORTABLE CLINICAL HISTORY: EBUS postoperative evaluation COMPARISON STUDY: 12/02/2012 FINDINGS: Images mislabeled in terms of left right markers. There is a small post procedural parenchymal hemorrhage/atelectasis peripheral aspect right upper lung. Lungs otherwise appear clear. No evidence pneumothorax. IMPRESSION: Small parenchymal hemorrhage/contusion post procedural. No evidence for postprocedural pneumothorax. The above report was generated using voice recognition software. It may contain grammatical, syntax or spelling errors. Electronically signed by: Ethan Azevedo M.D. 11/16/2017 2:07 PM Dictated Date/Time: 11/16/2017 2:05 PM
[2017-11-16 14:20] VITALS: BP 143/89; PULSE 78; TEMP 36.5; O2SAT 94
[2017-11-16 14:50] VITALS: BP 139/85; PULSE 81; TEMP 36.7; O2SAT 95
--- NOTE | 2017-11-16 15:09 | Anesthesiology Progress Note ---
Anesthesia Post Op Note Date & Time Nov 16, 2017 at 15:09 Vital Signs Pain Intensity: 0 Vital Signs Past 12 Hours Date Time Temp Pulse Resp B/P (MAP) Pulse Ox O2 Delivery O2 Flow Rate FiO2 11/16/17 14:20 36.5 78 18 143/89 94 Room Air 11/16/17 14:16 81 19 144/83 92 11/16/17 14:10 37.4 11/16/17 14:10 82 21 158/114 94 11/16/17 14:00 86 20 161/89 98 11/16/17 13:50 88 20 148/99 100 11/16/17 13:40 90 20 158/88 100 11/16/17 13:33 88 24 149/69 100 11/16/17 13:33 37 92 18 149/69 98 Oxymask 10 11/16/17 10:58 36.4 69 20 156/77 (103) 97 Room Air Notes Mental Status: alert / awake / arousable, participated in evaluation Pt Amnestic to Procedure: Yes Nausea / Vomiting: adequately controlled Pain: adequately controlled Airway Patency, RR, SpO2: stable & adequate BP & HR: stable & adequate Hydration State: stable & adequate Anesthetic Complications: no major complications apparent
[2017-11-16 15:16] VITALS: BP 135/81; PULSE 80; TEMP 36.6; O2SAT 94
--- NOTE | 2017-11-16 15:27 | OPERATIVE REPORT ---
DATE OF OPERATION: 11/16/2017 PREOPERATIVE DIAGNOSES: Bilateral upper lobe lung masses and mediastinal adenopathy which is hypermetabolic. POSTOPERATIVE DIAGNOSIS: Poorly differentiated malignancy. PROCEDURE: Endobronchial ultrasound with biopsy. SURGEON: Dr. Contreras. OVERHEAD FOREMAN: Alvarez Aguilar, respiratory therapy. ANESTHESIA: General anesthesia with laryngeal mask airway using an iGel laryngeal mask airway. SPECIFICS OF PROCEDURE: This is a very nice 72-year-old male that I met just 3 days ago in the office. He had a nasal polyp and had it resected and was found to have a squamous cell carcinoma by Dr. Castillo Cowan and got clean resection margins. The patient underwent a workup and was found to have hypermetabolic masses that were rather large in both upper lobes as well as mediastinal adenopathy which was impressive. I was asked to evaluate him for tissue diagnosis. When I saw him last Thursday, I felt that an endobronchial ultrasound would be best way to not only stage him but also to get tissue diagnosis. On 11/16/2017, the patient was brought to the operating room and underwent an uncomplicated endobronchial ultrasound. These were very large nodes in biopsying the right level 2, right level 4, left level 10, right level 10 and level 7. The right level 4 and level 7 as well as a right level 2 all appeared to have malignant cells. We sent several specimens off just were for cell blocks. He tolerated it quite well. DESCRIPTION OF PROCEDURE: The patient was brought to the operating room and laid in supine position. General anesthesia was induced and a laryngeal mask airway was placed. Prophylactic antibiotics were given and an appropriate time-out taken. The endobronchial ultrasound scope was placed between the vocal cords and we did spray Xylocaine on these. We also sprayed Xylocaine in the distal trachea. There was a mass noted to bronchus intermedius a bit more distally in the anterior medial. I biopsied this with biopsy forceps and did a cell block. We saw no evidence of malignant cells. We also biopsied the lesion appeared to be coming from the orifice of the middle lobe bronchus, but again we had very little or touch preps. There was minor bleeding with these. We did irrigate this out. With use of the ultrasound, I could see that the right level 4 node was very large and I biopsied this several times and got actually quarters of tissue; however, what was mostly seen was necrosis. I did multiple biopsies and then biopsied the right level 10, level 7 and right level 2, left level 10 and we had positive cells on the rapid on site evaluation of the right level 4, level 7, and right level 2. We had very little in the way of bleeding. The bronchoscope was slowly removed and we saw no other abnormalities and no further bleeding. This was removed from the laryngeal mask airway and the patient was extubated. He tolerated it well. I attest to the content of the Intraoperative Record and any orders documented therein. Any exception s are noted below.
== END | disposition home or self-care (01) ==
LOC: C.ACU 10:20
PROVIDERS: ATTEND Surgery
DX: C34.2 Malignant neoplasm of middle lobe, bronchus or lung (principal); C77.1 Secondary and unspecified malignant neoplasm of intrathoracic lymph nodes; C30.0 Malignant neoplasm of nasal cavity; J43.9 Emphysema, unspecified; E78.00 Pure hypercholesterolemia, unspecified; I10 Essential (primary) hypertension; F42.9 Obsessive-compulsive disorder, unspecified; Z87.891 Personal history of nicotine dependence; Z85.828 Personal history of other malignant neoplasm of skin; Z79.82 Long term (current) use of aspirin; Z79.899 Other long term (current) drug therapy

== ENCOUNTER → 2017-12-07 | Outpatient (CLI) | payer OTHER, MEDICARE ==
[~2017-12-07] MED LIST changes: +ASPI81TA28 PO; -ATROPINE SULFATE 0.1 MG/ML 5ML SYR IV PRN; -CLINDAMYCIN PHOS 150 MG/ML 2 ML VIAL ONE; -DEXAMETHASONE SOD INJ 4 MG/ML VIAL ONE; -EpHEDrine SULFATE INJ 50 MG/ML AMP IV PRN; -EpHEDrine SULFATE INJ 50 MG/ML AMP ONE; -FENTANYL CITRATE INJ 50 MCG/1 ML 2 ML VIAL IV PRN; -FENTANYL CITRATE INJ 50 MCG/1 ML 2 ML VIAL ONE; -GLYCOPYRROLATE INJ 0.2 MG/ML VIAL ONE; -HYDROmorphone INJ 1 MG/ML SYR IV PRN; -LABETALOL HCL IV 5 MG/ML 20ML IV PRN; -LIDOCAINE HCL 2% 2 ML VIAL (20MG/ML) ONE; -MEPERIDINE HCL 25 MG/ML CARP IV PRN; -MIDAZOLAM HCL 1 MG/ML 2ML VIAL ONE; -NEOSTIGMINE METHYLSULFATE 5 MG/5 ML SYR ONE; -ONDANSETRON INJ 2 MG/ML 2 ML VIAL IV PRN; -ONDANSETRON INJ 2 MG/ML 2 ML VIAL ONE; -PHENYLEPHRINE HCL INJ 10 MG/ML VIAL ONE; -PROPOFOL IV EMULSION 10 MG/ML 20 ML VIAL IV ONE; -SUCCINYLCHOLINE CHLORIDE 20 MG/ML 10 ML VIAL IV ONE
[2017-12-07 18:34] LABS: CREATININE 0.96 mg/dl (0.60-1.40)
== END | disposition home or self-care (01) ==
LOC: C.LAB 17:23
PROVIDERS: ATTEND Internal Medicine Hematology & Oncology
DX: C34.80 Malignant neoplasm of overlapping sites of unspecified bronchus and lung (principal)

== ENCOUNTER → 2017-12-08 | Outpatient (CLI) | payer OTHER, MEDICARE ==
[~2017-12-08] MED LIST changes: +GADAVIST IV PRN
--- NOTE | 2017-12-08 19:09 | DIAGNOSTIC IMAGING REPORT ---
BRAIN COMBO CLINICAL HISTORY: 72 years-old Male presenting with STAGE 4 LUNG CA, concern for metastases. TECHNIQUE: Multisequence, multiplanar MR imaging of the brain was performed before and after the administration of intravenous contrast. IV contrast: 8 mL of Gadavist. COMPARISON: Noncontrast brain MR from 2009. FINDINGS: Proportional ventricular and sulcal prominence, likely age-related parenchymal volume loss. Few foci of T2/FLAIR hyperintensity in the subcortical white matter, nonspecific and likely age-related. No mass effect or midline shift. No restricted diffusion to suggest acute ischemia. No hemorrhage. No extra-axial fluid collection. T2 skull base flow voids preserved. No abnormal parenchymal enhancement. Bone marrow signal intensity within the calvarium within normal limits. IMPRESSION: 1. No acute intracranial pathology. No evidence of intracranial metastases. Electronically signed by: Guillermo Sharma M.D. 12/08/2017 7:08 PM Dictated Date/Time: 12/08/2017 7:04 PM
== END | disposition home or self-care (01) ==
LOC: C.MRI 17:21
PROVIDERS: ATTEND Internal Medicine Hematology & Oncology
DX: C34.80 Malignant neoplasm of overlapping sites of unspecified bronchus and lung (principal)

== ENCOUNTER → 2017-12-09 | Outpatient (CLI) | payer OTHER, MEDICARE ==
[~2017-12-09] MED LIST changes: -GADAVIST IV PRN
--- NOTE | 2017-12-09 07:37 | DIAGNOSTIC IMAGING REPORT ---
CT CHEST SUPERDIMENSIONAL WITHOUT CT DOSE: 620.41 mGy.cm CLINICAL HISTORY: R91.8 lung mass TECHNIQUE: Helical images were acquired in the transverse plane. Data was sent for navigational bronchoscopy. A dose lowering technique was utilized adhering to the principles of ALARA. COMPARISON STUDY: PET/CT scan dated 11/11/2017 FINDINGS: No thyroid masses are visualized. There are enlarged paratracheal AP window and subcarinal lymph nodes. AP window lymph nodes measure up to 23 mm in diameter. There is a 21 mm subcarinal lymph node. Although difficult to evaluate given the lack of intravenous contrast, there is suspected right hilar lymphadenopathy. There are coronary artery calcifications. Visualized portions of the upper abdomen reveal bilateral nephrolithiasis. No pleural effusions are visualized. There is underlying pulmonary emphysema. There is a lobulated 4.7 cm left upper lobe pulmonary mass. There is a right hilar mass with calcifications. This measures 3.6 cm. The mass appears to extend into the right bronchus intermedius. In addition, there is an irregular marginated 38 mm right upper lobe mass. IMPRESSION: 1. Pathologic mediastinal and right hilar lymphadenopathy 2. 3.6 cm right hilar mass with calcifications. There appears to be direct extension into the right bronchus intermedius 3. 38 mm right upper lobe pulmonary mass 4. Lobulated 48 mm left upper lobe pulmonary mass Electronically signed by: Gabe Dumont M.D. 12/09/2017 7:36 AM Dictated Date/Time: 12/09/2017 7:29 AM
== END | disposition home or self-care (01) ==
LOC: C.CTS 07:18
PROVIDERS: ATTEND Surgery
DX: R91.8 Other nonspecific abnormal finding of lung field (principal); R59.0 Localized enlarged lymph nodes

== ENCOUNTER 2017-12-10 05:50 | Day surgery (SDC) | payer OTHER, MEDICARE ==
[2017-12-08 14:57] VITALS: BMI 27.0
[~2017-12-10] VITALS: Ht 172.7 cm; Wt 82.0 kg
[~2017-12-10 05:50] MED LIST changes: -ASPCH81X PO; -ASPI81TA28 PO; -ZANTAC PO
[2017-12-10] MEDS ORDERED: LACTATED RINGER'S 1000ML 1,000 ML IV SCH (06:00)
[2017-12-10] MEDS ORDERED: CLINDAMYCIN IV 900 MG in DEXTROSE 5% 50ML IV SCH (06:00)
[2017-12-10] MEDS ORDERED: ASPI81TA28 PO (06:11)
[2017-12-10 06:15] VITALS: BP 141/100; PULSE 66; TEMP 36.4; O2SAT 99; Ht 172.7 cm; Wt 82.0 kg
[2017-12-10] MEDS ORDERED: FENTANYL CITRATE INJ 50 MCG/1 ML 2 ML VIAL ONE ×3 (06:46→08:02)
--- NOTE | 2017-12-10 06:55 | History and Physical ---
History & Physical Date & Time of Service: Dec 10, 2017 at 06:46 Chief Complaint: Lung Cancer Primary Care Physician: Nasir Houston M.D. History of Present Illness Source: patient Mr. Orr is a 72-year-old male for port placement with Dr. Mckeon in the OR today. Additionally, patient will be having an electromagnetic navigational bronchoscopy for complete staging of upper lobe masses with Dr. Contreras in OR today. H- Dr. Castillo Dennis performed a resection of a squamous cell carcinoma of the right nasal septum, clean resection margins. Dr. Contreras became involved after patient received a PET scan and the patient had mediastinal adenopathy and bilateral upper lobe masses as of which were hypermetabolic. 11/16/2017- patient underwent an endobronchial ultrasound with positive lymph nodes for squamous cell carcinoma. Patient is being followed by Heme/Onc. Port placement procedure discussed with patient. Risks of surgery discussed with patient including, but not limited to bleeding, infection, injury. Post-operative instructions discussed with patient. Will proceed with Port Placement in OR today. Social History Smoking Status: Former Smoker Marital Status: Housing status: lives with family Immunizations History of Influenza Vaccine: Yes Influenza Vaccine Date: Aug 13, 2010 History of Tetanus Vaccine?: Yes History of Pneumococcal: Yes History of Hepatitis B Vaccine: No Allergies Coded Allergies: POLLEN (Verified Allergy, Unknown, ., 12/10/17) Penicillins (Verified Allergy, Unknown, HIVES, 12/10/17) Prednisone (Verified Allergy, Unknown, INCREASED ANXIETY "REV ME UP", ) Ragweed (Verified Allergy, Unknown, ., 12/10/17) Alprazolam (Verified Adverse Reaction, Unknown, "revs me up", 12/10/17) Hydrocodone (Verified Adverse Reaction, Unknown, SICK IN STOMACH, 12/10/17) Levofloxacin (Verified Adverse Reaction, Unknown, "BOTHERED MY ACHILLES TENDON", 12/10/17) Lorazepam (Verified Adverse Reaction, Unknown, "revs me up", 12/10/17) Serotonin (Verified Adverse Reaction, Unknown, INCREASED ANXIETY "REV ME UP", 12/10/17) Home Medications Scheduled Aspirin (Aspirin Ec), 81 MG PO DAILY Atorvastatin (Lipitor), 20 MG PO QPM Chlorthalidone (Hygroton), 25 MG PO QAM Coenzyme Q10 (Ubidecarenone) (Coq10), 1 CAP PO QPM Fish Oil ([place]-3), 1 CAP PO QPM Lisinopril (Zestril), 40 MG PO QAM Multiple Vitamins W/ Minerals (Favio Multivitamin For Men), 1 TAB PO QPM Psyllium (Metamucil), 1 DOSE PO DIRECTED Scheduled PRN Sildenafil Citrate (Pulmonary (Sildenafil), 1 TAB PO DIRECTED PRN for PRN Review of Systems Constitutional: No fever, No chills Integumentary: No rash, No new/changing skin lesions, No color change Physical Exam Vital Signs Date Time Temp Pulse Resp B/P (MAP) Pulse Ox O2 Delivery O2 Flow Rate FiO2 12/10/17 06:15 36.4 66 18 141/100 (114) 99 Room Air Impression Assessment and Plan Will proceed with port placement in OR today with Dr. Mckeon. Compression stockings ordered. IV abx ordered- Clindamycin. Resuscitation Status VTE Prophylaxis Will order VTE Prophylaxis: Yes (compression stockings ordered by Dr. Contreras. )
[2017-12-10] MEDS ORDERED: MIDAZOLAM HCL 1 MG/ML 2ML VIAL ONE (07:03)
[2017-12-10] MEDS ORDERED: ATROPINE SULFATE 0.1 MG/ML 5ML SYR IV PRN (07:15)
[2017-12-10] MEDS ORDERED: EpHEDrine SULFATE INJ 50 MG/ML AMP IV PRN (07:15)
[2017-12-10] MEDS ORDERED: ONDANSETRON INJ 2 MG/ML 2 ML VIAL IV PRN ×2 (07:15→10:00)
[2017-12-10] MEDS ORDERED: HEPARIN SOD (PORCINE) 1000 UNIT/ML 10 ML VIAL ONE (07:24)
[2017-12-10] MEDS ORDERED: BUPIVACAINE 0.5 % 5 MG/1 ML MPF 30ML VIAL ONE (07:24)
--- NOTE | 2017-12-10 08:38 | [facility] Post Operative Brief Note ---
Immediate Operative Summary Operative Date Dec 10, 2017. Pre-Operative Diagnosis Lung Mass Need for Chemotherapy Post-Operative Diagnosis Bilateral lung cancer Procedure(s) Performed FOB with biopsy ENB with biopsy Surgeon Dr Contreras/ Dr. Mckeon Wind Operations Manager Surgeon(s) None Estimated Blood Loss 5 cc Findings Consistent with Post-Op Diagnosis Specimens All specimens from bronchoscopy are handled by respiratory and lab
[2017-12-10] MEDS ORDERED: HYDROmorphone INJ 2 MG/ML SYR/VIAL ONE (08:40)
[2017-12-10] MEDS ORDERED: GLYCOPYRROLATE INJ 0.2 MG/ML VIAL ONE (08:56)
[2017-12-10] MEDS ORDERED: PROPOFOL IV EMULSION 10 MG/ML 20 ML VIAL IV ONE (08:56)
[2017-12-10] MEDS ORDERED: ROCURONIUM BROMIDE 10 MG/ML 5 ML VIAL IV ONE (08:56)
[2017-12-10] MEDS ORDERED: ONDANSETRON INJ 2 MG/ML 2 ML VIAL ONE (08:56)
[2017-12-10] MEDS ORDERED: NEOSTIGMINE METHYLSULFATE 5 MG/5 ML SYR ONE (08:56)
[2017-12-10] MEDS ORDERED: LIDOCAINE HCL 2% 2 ML VIAL (20MG/ML) ONE (08:56)
[2017-12-10] MEDS ORDERED: EpHEDrine SULFATE 50MG/5ML SYR ONE (08:56)
[2017-12-10] MEDS ORDERED: PHENYLEPHRINE 100MCG/ML 5ML SYR ONE (08:56)
[2017-12-10] MEDS ORDERED: DEXAMETHASONE SOD INJ 4 MG/ML VIAL ONE (09:13)
--- NOTE | 2017-12-10 09:42 | [facility] Post Operative Brief Note ---
Immediate Operative Summary Operative Date Dec 10, 2017. Pre-Operative Diagnosis Lung Mass Need for Chemotherapy Post-Operative Diagnosis Bilateral lung cancer Procedure(s) Performed Left IJ vein port placement with real time ultrasound and fluoroscopy guidance Surgeon Dr. Mckeon Food Service Utility Worker Surgeon(s) Pina Woodward PA-C Estimated Blood Loss 7CC Findings Consistent with Post-Op Diagnosis Left IJV port placed, fluoroscopy confirmed placement to SVC/atria junction Specimens None Drains None Anesthesia Type General Complication(s) none Disposition Accompanied Pt To Recover: no Disposition: Recovery Room / PACU
--- NOTE | 2017-12-10 09:48 | [facility] Operative Report ---
Operative Report Operative Date Dec 10, 2017. Pre-Operative Diagnosis Lung Mass Need for Chemotherapy Post-Operative Diagnosis same Procedure(s) Performed Left internal jugular vein port placement using real time ultrasound guidance and fluoroscopy Surgeon Dr. Mckeon Inside Sales Manager Surgeon(s) Pina Woodward PA-C Estimated Blood Loss 7CC Findings Left internal jugular vein accessed using ultrasound guidance, port placed to cavoatrial junction, fluoroscopy confirmed good placement. Specimens None Drains None Anesthesia General Complication(s) None Disposition Recovery Room / PACU Indications 72-year-old male with newly diagnosed cancer, requires long-term venous access for chemotherapy, plan for port placement. The risks of the procedure were discussed, all questions were answered, and the patient agreed to proceed with surgery as planned. Description of Procedure The patient was properly identified, consented, and taken to the operating room where he was placed in the supine position with both arms tucked and a shoulder roll placed vertically. General endotracheal anesthesia was induced. SCDs and a safety belt were placed. Preoperative antibiotics were administered. The patient underwent a navigational bronchoscopy by Dr. Contreras. The patient's chest and neck was prepped and draped in the standard sterile fashion. Surgical timeout was performed and all parties were in agreement that this was the correct patient and procedure to be performed and we continued as planned. The patient was placed in Trendelenburg position. Local anesthetic was injected along the skin incision. Using real-time ultrasound guidance, the left internal jugular vein was accessed on the first attempt using the access needle. The wire was placed the needle was removed. Initial fluoroscopy showed wire currently back on itself, however using real-time fluoroscopy wire was placed into the superior vena cava. A transverse skin incision was made in the left chest and a pocket was created for the port. The catheter was brought through the chest incision and into the neck incision using dissector. The dilator and peel-away sheath were inserted over the wire. The catheter was then inserted through the peel-away sheath and fluoroscopy confirmed placement into the superior vena cava. The catheter was cut and attached to the port. The port was secured into place with 3-0 Prolene sutures. A final x-ray revealed good placement of the port. The wound was irrigated and hemostasis was confirmed. The skin was closed with interrupted 3-0 Vicryl deep dermal sutures, followed by 4-0 Monocryl running subcuticular suture. Dermabond was placed over the wound. The port was accessed and phyllis blood easily and flushed easily. It was flushed with heparinized saline. The patient taken to the PACU where he recovered without apparent incident. All sponge, instrument and needle counts were correct at the conclusion of the procedure. The patient tolerated the procedure well. The physician's respiratory therapy assistant was present and scrubbed for the entirety of the case. She was essential in positioning the patient, prepping and draping, retraction and exposure, placement of the port, closure of the skin, and placement of dressings. I attest to the content of the Intraoperative Record and any orders documented therein. Any exceptions are noted below.
--- NOTE | 2017-12-10 09:49 | [facility] Operative Report ---
Operative Report Operative Date Dec 10, 2017. Pre-Operative Diagnosis Lung Mass Need for Chemotherapy Surgeon Dr. Mckeon Findings Real-time ultrasound guidance was used to access the left internal jugular vein. Fluoroscopy was used to position the catheter and confirm final placement. A total of 34.7 seconds of fluoroscopy time was used. The images were interpreted by the surgeon in real time. I attest to the content of the Intraoperative Record and any orders documented therein. Any exceptions are noted below.
[2017-12-10] MEDS ORDERED: SODIUM CHLORIDE 0.9% 1000ML 1,000 ML IV SCH (09:53)
--- NOTE | 2017-12-10 09:58 | Discharge Instructions ---
Discharge Instructions Date of Service Dec 10, 2017. Admission Reason for Admission: Lung Cancer Discharge Discharge Diagnosis / Problem: Lung Cancer Discharge Goals Goal(s): Decrease discomfort, Improve function Activity Recommendations Activity Limitations: as noted below Lifting Limitations: no more than 10 pounds Exercise/Sports Limitations: until after follow-up appointment May Resume Sexual Activity: after follow-up appointment Shower/Bathe: tomorrow Driving or Machine Use: resume 3 days after discharge . Instructions / Follow-Up Instructions / Follow-Up You may use regular strength Tylenol for pain management- Regular strength ( 325mg/tab) Acetaminophen 2 tabs every 4-6 hours as needed. Do not exceed 10 tabs in a 24 hr period. Do not take more than 3,000mg of Tylenol per day. This includes any other sources of Acetaminophen you may take on a regular basis. You have a follow-up appointment with Dr. Contreras on 12/21/2017 at 9:15AM. At that visit we will also check your incision from your port placement. Please call our office at [phone] with any questions or concerns. Current Hospital Diet Patient's current hospital diet: Discharge Diet Recommended Diet: Regular Diet Procedures Procedures Performed: Left IJ vein port placement with real time ultrasound and fluoroscopy guidance Pending Studies Studies pending at discharge: no Medical Emergencies . Who to Call and When: Medical Emergencies: If at any time you feel your situation is an emergency, please call 911 immediately. . Non-Emergent Contact Non-Emergency issues call your: Primary Care Provider, Surgeon Call Non-Emergent contact if: temperature is above 101.5, your pain is not controlled, wound has increased drainage, wound has increased redness . "Provider Documentation" section prepared by Pina Woodward. .
[2017-12-10] MEDS: FENTANYL CITRATE INJ 50 MCG/1 ML 2 ML VIAL IV PRN ×2 (10:00→10:05)
--- NOTE | 2017-12-10 10:34 | Anesthesiology Progress Note ---
Anesthesia Post Op Note Date & Time Dec 10, 2017 at 10:34 Vital Signs Pain Intensity: 2 Vital Signs Past 12 Hours Date Time Temp Pulse Resp B/P (MAP) Pulse Ox O2 Delivery O2 Flow Rate FiO2 12/10/17 10:25 36.5 75 22 12/10/17 10:25 76 22 110/62 93 12/10/17 10:21 103/62 12/10/17 10:20 68 17 99 12/10/17 10:20 68 17 12/10/17 10:15 70 15 125/63 99 12/10/17 10:15 68 15 12/10/17 10:10 71 16 125/68 100 12/10/17 10:10 72 16 12/10/17 10:06 113/57 12/10/17 10:05 76 16 98 12/10/17 10:05 77 16 12/10/17 10:01 101/59 12/10/17 10:00 79 17 97 12/10/17 10:00 80 17 12/10/17 09:57 117/80 12/10/17 09:55 83 13 96 12/10/17 09:55 88 13 12/10/17 09:54 118/73 12/10/17 09:50 36.4 88 16 118/73 97 Oxymask 8 12/10/17 06:15 36.4 66 18 141/100 (114) 99 Room Air Notes Mental Status: alert / awake / arousable, participated in evaluation Pt Amnestic to Procedure: Yes Nausea / Vomiting: adequately controlled Pain: adequately controlled Airway Patency, RR, SpO2: stable & adequate BP & HR: stable & adequate Hydration State: stable & adequate Anesthetic Complications: no major complications apparent
--- NOTE | 2017-12-10 10:39 | DIAGNOSTIC IMAGING REPORT ---
CHEST ONE VIEW PORTABLE CLINICAL HISTORY: s/p port placement tube position COMPARISON STUDY: 11/16/2017 FINDINGS: Interval placement of a central catheter to the superior vena cava at the juncture with the right atrium. There are diffuse parenchymal infiltrative change of the right upper lobe and early development of changes involving the left base. Right upper lobe changes are slightly progressive. Left upper lung is clear as is the right base. No evidence of pneumothorax. IMPRESSION: Placement of a central catheter in superior vena cava at the juncture with the right atrium. 2. No evidence pneumothorax. 3. Slightly progressive parenchymal infiltrates right upper lung and left base. The above report was generated using voice recognition software. It may contain grammatical, syntax or spelling errors. Electronically signed by: Ethan Azevedo M.D. 12/10/2017 10:38 AM Dictated Date/Time: 12/10/2017 10:36 AM
[2017-12-10 10:50] VITALS: BP 133/70; PULSE 82; TEMP 37; O2SAT 93
[2017-12-10 11:20] VITALS: BP 139/82; PULSE 71; O2SAT 94
--- NOTE | 2017-12-10 11:37 | DIAGNOSTIC IMAGING REPORT ---
CHEST 1 VIEW FRONTAL CLINICAL HISTORY: NAVIGATIONAL BRONCH bronchoscopy TECHNIQUE: Navigational bronchoscopy COMPARISON STUDY: None FINDINGS: Image intensifier was utilized intraoperatively for navigational bronchoscopy. IMPRESSION: Navigational bronchoscopy The above report was generated using voice recognition software. It may contain grammatical, syntax or spelling errors. Electronically signed by: Ethan Azevedo M.D. 12/10/2017 11:35 AM Dictated Date/Time: 12/10/2017 11:34 AM
[2017-12-10 11:40] VITALS: BP 137/78; PULSE 73; O2SAT 93
--- NOTE | 2017-12-10 23:03 | OPERATIVE REPORT ---
DATE OF OPERATION: 12/10/2017 PREOPERATIVE DIAGNOSES: 1. Bilateral upper lobe masses. 2. 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 POSTOPERATIVE DIAGNOSES: 1. Bilateral upper lobe lung cancers. 2. Metastases to mediastinal lymph nodes. PROCEDURES: 1. Fiberoptic bronchoscopy with biopsy. 2. Electromagnetic navigational bronchoscopy with biopsy. SURGEON: Aurelio Contreras MD ANESTHESIA: General anesthesia with endotracheal intubation. INDICATION FOR PROCEDURE AND FINDINGS: Castillo Orr is a 72-year-old male that had 2 bilateral upper lobe masses with mediastinal lymphadenopathy, which was hypermetabolic on his CT scan. The patient also had a right nasal septal carcinoma; however, this was resected with a clean resection margins. We did not feel we were dealing with metastatic disease. I took the patient to the operating room approximately 3 weeks ago and performed an endobronchial ultrasound and found that his right level 2 and right level 4 nodes had metastatic disease consistent with squamous cell carcinoma. The patient was evaluated by Dr. Gilmar Ryan. It was felt that we should make sure that we were not dealing with synchronous cancers. For this reason, I brought him back for an electromagnetic navigational bronchoscopy. The patient underwent this procedure on 12/10/2017. I was very surprised to see that in the 3 weeks since I last had a bronchoscope in his airway, he has developed a mass in his distal right main and his airway as well as a right upper lobe mass. I biopsied these and indeed these are carcinoma. I also did a navigational bronchoscopy and biopsy of the left upper lobe and this was also malignant. We do not have a cell types on the rapid onsite evaluation. He tolerated it well with essentially no blood loss. DESCRIPTION OF PROCEDURE: The patient was brought to the operating room and laid in supine position. General anesthesia was induced. Endotracheal intubation was performed. Appropriate timeout had been called and prophylactic antibiotics were given. A fiberoptic bronchoscope was placed into the endotracheal tube. I was surprised to see there was a mass at the distal right mainstem bronchus. I biopsied this with forceps. Upon going into the right upper lobe, there was a necrotic mass and I biopsied this several times with forceps Also. While waiting for the touch preps of these on the rapid onsite evaluation, I then registered the airways and then went on to use the SuperDimension system to go into the left upper lobe mass. This was done without difficulty. I then confirmed this with the radial ultrasound where I could see we were right in the middle of this mass. I did brushes on this and the first brushes came back as positive for carcinoma. I also did a needle biopsy for a wash. We got into no bleeding with this. Upon coming back, the rapid onsite evaluation of the 2 masses in the right airway still did not show a definitive diagnosis, but was quite suspicious and necrotic. I used the needle and did a needle biopsy of the distal right mainstem bronchial lesion and also did brushings of the right upper lobe mass. This came back as positive for carcinoma too. As we now had a diagnosis of carcinoma in both of the upper lobe masses, I stopped at this point. We really got into no bleeding with this. He was x-rayed in the room. He tolerated it well. We did suction cleaned upon leaving as we were removing the bronchoscope. I attest to the content of the Intraoperative Record and any orders documented therein. Any exceptions are noted below. ERIC
== END 2017-12-10 11:45 | disposition home or self-care (01) ==
LOC: C.ACU 05:50
PROVIDERS: ATTEND Surgery
DX: C34.11 Malignant neoplasm of upper lobe, right bronchus or lung (principal); C34.12 Malignant neoplasm of upper lobe, left bronchus or lung; C77.1 Secondary and unspecified malignant neoplasm of intrathoracic lymph nodes; I10 Essential (primary) hypertension; E78.00 Pure hypercholesterolemia, unspecified; Z88.0 Allergy status to penicillin; Z88.8 Allergy status to other drugs, medicaments and biological substances; Z96.653 Presence of artificial knee joint, bilateral; Z85.828 Personal history of other malignant neoplasm of skin; Z87.891 Personal history of nicotine dependence; Z98.890 Other specified postprocedural states; Z79.82 Long term (current) use of aspirin; Z79.899 Other long term (current) drug therapy; Z82.3 Family history of stroke; Z82.49 Family history of ischemic heart disease and other diseases of the circulatory system

== ENCOUNTER → 2018-01-05 | Outpatient (CLI) | payer OTHER, MEDICARE ==
[~2018-01-05] MED LIST changes: +ASPI81TA28 PO
== END | disposition home or self-care (01) ==
LOC: C.FOODA 10:07
PROVIDERS: ATTEND Internal Medicine Hematology & Oncology
DX: Z71.3 Dietary counseling and surveillance (principal); C34.11 Malignant neoplasm of upper lobe, right bronchus or lung; C34.12 Malignant neoplasm of upper lobe, left bronchus or lung; C77.1 Secondary and unspecified malignant neoplasm of intrathoracic lymph nodes; Z87.891 Personal history of nicotine dependence

== ENCOUNTER → 2018-01-21 | Outpatient (CLI) | payer OTHER, MEDICARE ==
[~2018-01-21] MED LIST changes: +OPTIRAY 320 IV PRN
--- NOTE | 2018-01-21 15:23 | DIAGNOSTIC IMAGING REPORT ---
CT (CHEST) THORAX WITH CLINICAL HISTORY: 72 years-old Male presenting with NON SMALL CELL LUNG CANCER. TECHNIQUE: Multidetector CT imaging of the chest was performed after the administration of intravenous contrast. IV contrast: 93 mL of Optiray 320. A dose lowering technique was used consistent with the principles of ALARA (as low as reasonably achievable). COMPARISON: 12/09/2017. CT DOSE (mGy.cm): The estimated cumulative dose is 313.53 mGy.cm. FINDINGS: Apartment Leasing Agent topogram: Interval placement of a left internal jugular Mediport, which terminates in the right atrium. On soft tissue windows, normal thyroid and thoracic inlet. Redemonstration of multiple pathologically enlarged mediastinal lymph nodes. And index node in the aortopulmonary window measures 16 mm in the short axis (series 4 image 106). Redemonstration of the calcified right hilar mass measuring 2.6 cm (series 4 image 117), unchanged aerated prominent bilateral hilar lymph nodes again noted. No axillary or supraclavicular lymphadenopathy. Atherosclerosis of the aorta. Normal heart size. Coronary artery and mitral annular calcification. No pericardial or pleural effusion. Upper abdomen normal. On lung windows, extensive paraseptal and centrilobular emphysematous changes. Interval evolution of the spiculated mass in the anterior left upper lobe, which may imply partial resection. The irregularity of this region makes measurement difficult. The largest region of residual solid nodular tissue measures 2.5 cm in diameter (series 4 image 116). Surrounding architectural distortion and spiculation as well as overlying pleural thickening. Focal spiculated nodular consolidation in the anterior right upper lobe as on prior exam. Again, this region is difficult to measure secondary to its irregular shape. The largest solid nodular component measures approximately 3.5 cm (series 4 image 84), unchanged with surrounding architectural distortion including overlying pleural thickening. Solid peripheral 5 mm nodule in the right lower lobe (series 4 image 139), unchanged since most recent prior exam. Minimal subsolid nodular opacity in the posterior right upper lobe (series 4 image 1:15). Solid peripheral 4 mm nodule in the right lower lobe (series 4 image 167), unchanged since most recent prior. Mild bronchial wall thickening. Central airways patent. On bone windows, degenerative changes of the spine. IMPRESSION: 1. Suspected posttreatment or postprocedural changes of the irregular spiculated left upper lobe mass. 2. Persistent irregular spiculated right upper lobe mass, unchanged. 3. Persistent mediastinal lymphadenopathy and prominent bilateral hilar lymph nodes. No supraclavicular lymphadenopathy. 4. Multiple solid pulmonary nodules, indeterminant. Continued follow-up recommended. 5. Emphysema. Electronically signed by: Guillermo hSarma M.D. 01/21/2018 3:22 PM Dictated Date/Time: 01/21/2018 3:13 PM
== END | disposition home or self-care (01) ==
LOC: C.CTS 14:40
PROVIDERS: ATTEND Internal Medicine Hematology & Oncology
DX: C34.80 Malignant neoplasm of overlapping sites of unspecified bronchus and lung (principal); R91.8 Other nonspecific abnormal finding of lung field; J43.9 Emphysema, unspecified

== ENCOUNTER → 2018-02-11 | Outpatient (CLI) | payer OTHER, MEDICARE ==
[~2018-02-11] MED LIST changes: +IBUP-1450 PO; +NAPR-1169 PO; -OPTIRAY 320 IV PRN
--- NOTE | 2018-02-11 09:18 | DIAGNOSTIC IMAGING REPORT ---
CHEST 2 VIEWS ROUTINE CLINICAL HISTORY: R91.8 Lung [id number] lung carcinoma COMPARISON STUDY: 12/10/2017 FINDINGS: Improved aeration right upper lung. Central catheter in superior vena cava. Residual nodularity and/or fibrous scarring right upper lung measuring 1.6 x 0.8 cm. Lungs otherwise appear clear. There is a component of emphysematous change. Calcification of the mitral annulus is noted. IMPRESSION: Improved exam. Residual linear scar versus residual parenchymal nodular density right upper lung as discussed. The above report was generated using voice recognition software. It may contain grammatical, syntax or spelling errors. Electronically signed by: Ethan Azevedo M.D. 02/11/2018 9:16 AM Dictated Date/Time: 02/11/2018 9:14 AM
== END | disposition home or self-care (01) ==
LOC: C.RAD 08:58
PROVIDERS: ATTEND Surgery
DX: R91.8 Other nonspecific abnormal finding of lung field (principal)

== ENCOUNTER → 2018-05-28 | Outpatient (CLI) | payer OTHER, MEDICARE ==
[~2018-05-28] MED LIST changes: -ASPI81TA28 PO; +CALC500C3 PO; +DIAZ2TAB PO; -IBUP-1450 PO; +MBXC PO; -NAPR-1169 PO; +NAPR-22 PO; +ONDA-170 PO; +OXYC-90 PO; +RANI150T85 PO; +SILD1TAB19 PO; -SILD1TAB39 PO
[2018-05-28 09:45] LABS: BASO % 0.2 %; BASO ABS # 0.02 K/uL (0-0.2); EOS ABS # 0.38 K/uL (0-0.5); HEMATOCRIT 40.8 % (42-52); IG# 0.04 K/uL (0.00-0.02); LYMPH % 4.1 %; LYMPH ABS # 0.39 K/uL (1.2-3.4); MEAN CELL VOLUME 101.5 fL (80-100); MEAN CORPUSCULAR HEMOGLOBIN 34.8 pg (25-34); MEAN CORPUSCULAR HGB CONC 34.3 g/dl (32-36); MEAN PLATELET VOLUME 9.3 fL (7.4-10.4); MONO % 10.5 %; MONO ABS # 1.01 K/uL (0.11-0.59); NEUT % 80.8 %; NEUT ABS # 7.75 K/uL (1.4-6.5); PLATELET COUNT 176 K/uL (130-400); RED CELL DISTRIBUTION WIDTH CV 12.8 % (11.5-14.5); RED CELL DISTRIBUTION WIDTH SD 47.5 fL (36.4-46.3); WHITE BLOOD COUNT 9.59 K/uL (4.8-10.8)
[2018-05-28 10:08] LABS: ALBUMIN 3.9 gm/dl (3.4-5.0); ALKALINE PHOSPHATASE 42 U/L (45-117); ALT/SGPT 29 U/L (12-78); AST/SGOT 23 U/L (15-37); BLOOD UREA NITROGEN 30 mg/dl (7-18); CALCIUM 9.4 mg/dl (8.5-10.1); CARBON DIOXIDE 25 mmol/L (21-32); CREATININE 0.82 mg/dl (0.60-1.40); GLUCOSE 106 mg/dl (70-99); POTASSIUM 4.2 mmol/L (3.5-5.1); SODIUM 136 mmol/L (136-145); TOTAL PROTEIN 7.1 gm/dl (6.4-8.2)
== END | disposition home or self-care (01) ==
LOC: C.LABSPEC 09:29
PROVIDERS: ATTEND Internal Medicine Hematology & Oncology
DX: C34.80 Malignant neoplasm of overlapping sites of unspecified bronchus and lung (principal)